=== PATIENT | female | born 1960 | race Caucasian/White ===

== ENCOUNTER 2018-11-24 11:11 | Day surgery (SDC) | payer BC ==
[~2018-11-24] VITALS: Ht 167.6 cm; Wt 113.6 kg
[2018-11-24 11:36] LABS: ANION GAP 15.1 mmol/L (8-16); CALCIUM 9.8 mg/dL (8.5-10.1); CARBON DIOXIDE 26.2 mmol/L (21.0-32.0); CREATININE - SERUM 1.1 mg/dL (0.6-1.3); POTASSIUM - SERUM 4.3 mmol/L (3.5-5.1)
[2018-11-24 12:21] LABS: BASOPHILS 0.2 % (0-2); EOSINOPHILS 1.5 % (0-7); HEMATOCRIT 45.3 % (36.0-48.0); HEMOGLOBIN 15.3 g/dL (12-16); LYMPHOCYTES 29.1 % (15-50); MCH 28.3 pg (26.0-34.0); MCHC 33.8 g/dL (31.0-37.0); MCV 83.9 fL (80.0-100.0); MEAN PLATELET VOLUME 10.1 fL (7.4-10.4); MONOCYTES 6.3 % (2-11); NEUTROPHILS 62.9 % (40-80); PLATELET COUNT 294 10x3/uL (130-400); RDW 14.4 % (11.5-14.5); WBC 5.9 10x3/uL (4.8-10.8)
[2018-11-24 13:43] VITALS: BP 115/74; Ht 167.6 cm; Wt 113.6 kg
[2018-11-24] MEDS ORDERED: LISINOPRIL20 MG PO (13:50)
[2018-11-24] MEDS ORDERED: EFFEXOR XR75 MG PO (13:50)
--- NOTE | 2018-11-24 20:17 | OP ---
PATIENT NAME: ASAF MUJICA MEDICAL RECORD: [id number] [facility]ATION:[facility] ADMISSION DATE: SURGEON: SANDY JEAN DO DATE OF OPERATION: 11/24/2018 PROCEDURE: Colonoscopy with polypectomy. INDICATION FOR PROCEDURE: Screening for colorectal cancer with history of colon polyps as well as diverticulosis of the colon. SCOPE: Olympus video pediatric colonoscope. MEDICATIONS: Propofol 450 mg IV per anesthesia. WITHDRAWAL TIME: 12 minutes. ESTIMATED BLOOD LOSS: Minimal. COMPLICATIONS: None. FINDINGS: Informed consent was given. The patient was made comfortable with the above medication. After reaching an adequate level of sedation by slow IV push, the patient was placed on her left side. A digital rectal examination was performed and was normal. The endoscope was then advanced under direct visualization through the rectum to the cecum, confirmed by the presence of the appendiceal orifice and ileocecal valve. The endoscope was slowly withdrawn and mucosa was carefully examined. The prep quality was good. There were multiple mixed-type diverticula without evidence of diverticulitis present throughout the entire colon. There was a single polyp visualized on today's examination. It was located in the ascending colon. It was a benign-appearing sessile polyp, which measured approximately 3 mm in diameter. It was removed using hot forceps. Retroflexion was performed in the rectum with visualization of grade I internal hemorrhoids without bleeding. The endoscope was withdrawn from the patient. The patient tolerated the procedure well and there were no complications. IMPRESSION: 1. Moderate diverticulosis of the entire colon. 2. Grade I internal hemorrhoids without bleeding. 3. A single, benign-appearing sessile polyp located in the ascending colon, status post removal with hot forceps. PLAN AND RECOMMENDATIONS: 1. Discharge home when recovery parameters are met. 2. High-fiber diet. 3. Continue current medications. 4. Recall colonoscopy in 5 years based on personal history of polyps. TRANSINT:[id number] Voice Confirmation ID: [id number] DOCUMENT ID: [id number] OPERATIVE REPORT [id number] ASAF MUJICA SANDY JEAN DO at 2017 CC: [id number] DICTATION DATE: 11/24/18 1500 [place] [employer]: 11/24/18 1519 [facility] 11/24/[address] [facility] [address] [facility] [place] [id number]
== END 2018-11-24 15:50 | disposition home or self-care (01) ==
LOC: D.OPS 11:11
PROVIDERS: Anesthesiology; ATTEND Internal Medicine Gastroenterology
DX: Z12.11 Encounter for screening for malignant neoplasm of colon (principal); K57.30 Diverticulosis of large intestine without perforation or abscess without bleeding; K64.0 First degree hemorrhoids; D12.2 Benign neoplasm of ascending colon; Z86.010 Personal history of colon polyps; Z01.812 Encounter for preprocedural laboratory examination